=== PATIENT | male | born 1985 | race Caucasian/White ===

== ENCOUNTER 2021-08-03 11:23 | Emergency (ER) | payer OTHER, SELFPAY ==
--- NOTE | ~2021-08-03 | XR_ITS ---
EXAMINATION: XR tibia fibula RT 2V EXAM DATE: 08/03/2021 12:10 INDICATION: Fall . Bilateral leg pain. TECHNIQUE: Right tibia/fibula frontal and lateral projections obtained and reviewed. There is no rhiannon or study for comparison. FINDINGS: There is acute right lateral tibial plateau fracture with about 5 mm of distraction. The fi bula is intact. IMPRESSION: Right lateral tibial plateau intra-articular fracture; orthopedic consult. Reviewed, dictated and finalized at location A. E AGENT
--- NOTE | ~2021-08-03 | XR_ITS ---
EXAMINATION: XR femur RT min 2V EXAM DATE: 08/03/2021 12:10 INDICATION: Fall . Bilateral leg pain. Initial encounter. TECHNIQUE: Right femur frontal and lateral frog projections of the proximal aspect, frontal and later al projections of the lower aspect for review. Correlation is made to contralateral exam date. FINDINGS: Right tibial plateau acute fracture. There are no acute femur fractures or dislocations kiana ntified. There is no subcutaneous gas. There is knee joint effusion. There are no radiopaque forei gn bodies. IMPRESSION: 1. Intact right femur. 2. Right lateral tibial plateau fracture. Reviewed, dictated and finalized at location A. MASSAGE THERAPIST
--- NOTE | ~2021-08-03 | XR_ITS ---
EXAMINATION: XR femur LT min 2V EXAM DATE: 08/03/2021 12:10 INDICATION: Fall, bilateral leg pain. Initial encounter. TECHNIQUE: Left femur frontal and frog lateral projections of the proximal aspect, frontal and latera l projections of the lower aspect for review. There is no prior study for comparison. FINDINGS: There are no acute left femoral fractures or dislocations identified. There is no subcutan eous gas. The soft tissue is unremarkable. There are no radiopaque foreign bodies. IMPRESSION: 1. XR femur LT min 2V exam without acute osseous findings. Reviewed, dictated and finalized at location A. HIC PRE PRESS TRADES WORKER
--- NOTE | ~2021-08-03 | CT_ITS ---
EXAMINATION: CT lumbar spine wo con DATE: 08/03/2021 12:15 INDICATION: Low back injury. TECHNIQUE: Computed tomography (CT) of the lumbar spine was performed without intravenous contrast. A utomated exposure control and iterative reconstruction technique were employed. The dose-length produ ct was 798.10 mGy-cm. COMPARISON: None FINDINGS: There are groundglass opacities in basilar left lower lobe. No pleural effusion. There is 3 mm levocurvature of lumbar spine. Vertebral body heights and intervertebral disc heights are normal. L4 is a limbus vertebra. The following disc levels are specifically discussed: L1-L2: The disc does not extend beyond the endplate margin. There is mild bilateral facet joint osteo arthritis. There is no neural foraminal stenosis. There is no central canal stenosis. L2-L3: The disc is bulging. There is mild bilateral facet joint osteoarthritis. There is no neural fo raminal stenosis. There is mild central canal stenosis. L3-L4: The disc is bulging. There is mild bilateral facet joint osteoarthritis. There is mild bilater al neural foraminal stenosis. There is mild central canal stenosis. L4-L5: The disc is bulging. There is mild bilateral facet joint osteoarthritis. There is mild bilater al neural foraminal stenosis. There is mild central canal stenosis. L5-S1: The disc is bulging. There is mild bilateral facet joint osteoarthritis. There is mild bilater al neural foraminal stenosis. There is mild central canal stenosis. IMPRESSION: 1. No fracture. 2. Mild lumbar spondylosis. 3. Groundglass opacities in left lung lower lobe, consistent with atelectasis versus pneumonia. Reviewed, dictated and finalized at location B. PROGRAMMER IMPRESSION: 1. No fracture. 2. Mild lumbar spondylosis. 3. Groundglass opacities in left lung lower lobe, consistent with atelectasis v ersus pneumonia.
--- NOTE | ~2021-08-03 | XR_ITS ---
EXAMINATION: XR tibia fibula LT 2V EXAM DATE: 08/03/2021 12:09 INDICATION: Fall off a roof lower ext pain. TECHNIQUE: Left tibia/fibula frontal and lateral projections obtained and reviewed. There is no prio r study for comparison. FINDINGS: Left tibial and fibular shafts unremarkable. There are no acute fractures or dislocations identified. There is no subcutaneous gas. The soft tissue is unremarkable. There are no radiopaqu e foreign bodies. IMPRESSION: 1. XR tibia fibula LT 2V exam without acute osseous findings. Reviewed, dictated and finalized at location A. NCIAL INSTITUTION MANAGER
[2021-08-03 11:31] VITALS: BP 112/71; PULSE 84; RESP 20; TEMP 37.1; O2SAT 100
--- NOTE | 2021-08-03 11:46 | ED.FALL ---
HPI - Fall General Chief Complaint: Fall Stated Complaint: roof collasped on self Source: patient and RN notes reviewed Mode of arrival: wheelchair Limitations: no limitations History of Present Illness HPI Narrative: Patient was on a storage container when the roof he was working on collapsed. He states that he rode it down to the ground falling onto his buttocks. The roof then fell onto his bilateral legs anteriorly. He complains of severe leg pain right greater than left. Denies any loss of consciousness. He denies any other injury. complaint: fall Onset (ago): minute(s) (40) Fall from: from height (distance) (10 feet) Fall witnessed: yes, by bystander Place fall occurred: work Loss of consciousness: none Symptoms prior to fall: none Location of injury: back Location of injury - extremities: Bilateral: thigh, knee and lower leg Severity: severe Quality: sharp, stabbing and aching Associated symptoms (after fall): denies Related Data Home Medications Medication Instructions Recorded Confirmed No Home Medications 08/03/21 08/03/21 Allergies Allergy/AdvReac Type Severity Reaction Status Date / Time No Known Allergies Allergy Mild Verified 08/03/21 12:04 Review of Systems Review of Systems: All systems reviewed & are unremarkable except as noted in HPI and below PMFSH Past Medical History Medical History No active medical problems Surgical History Surgical History (Updated 08/03/21 @ 12:06 by Eliseo Sahu MD) No pertinent past surgical history Social History Social History (Updated 08/03/21 @ 12:30 by Eliseo Sahu MD) Smoking packs per day: 1.5 Smoking cigarettes per day: 30.0 Smoking status: Current every day smoker Tobacco type: cigarettes Alcohol intake: never Substance use: never Exam Const: General: healthy appearing, no acute distress and alert Nutritional Appearance: well nourished and thin Orientation/consciousness: patient oriented x3 HENMT: Head: normal to inspection Ears: external ears normal Face and sinus: normal facial exam Eyes: Conjunctivae: conjunctivae normal Pupils: Equal, round and reactive pupils present EOM: EOMs intact bilaterally Neck: Neck: normal visual inspection Resp: Effort & Inspection: normal respiratory effort Auscultation: clear to auscultation bilaterally Cardio: Rate: regular rate Rhythm: regular rhythm GI: GI Palp: Yes Soft to palpation, No Tenderness to palpation present (GI) and No Guarding due to palpation present (GI) Auscultation: normal bowel sounds Back/Spine/Pelvis: Cervical Spine: cervical ROM normal Thoracic/Lumbar Spine: thoraco-lumbar spasm bilaterally in the lower lumbar and lumbar spinal tenderness at L4 and at L5 Skin: General skin exam: normal color Rashes: no rashes Other: Ecchymosis superior and inferior with mild abrasions to the left knee Neuro: General: patient oriented x3, moves all extremities, no meningeal signs, no focal motor deficits and CN's II-XI intact bilaterally Speech: normal speech Extrem: General: normal exam except as noted and no clubbing, cyanosis or edema Right upper extremity: normal to inspection Left upper extremity: normal to inspection Right lower extremity: knee Details: tenderness Location: of the proximal tibia (Severe) Details: laterally, swelling Location: of the patella and of the tibial tuberosity and abnormal ROM Details: held in an abnormal fashion Details: in flexion, pain with passive ROM during Details: in extension and in flexion and unable to extend lower leg actively Left lower extremity: knee Details: tenderness Location: of the pre-patellar area and of the infrapatellar area and normal ROM; no deformity Psych: Appearance: grossly normal and well kempt Mental Status: mental status grossly normal Affect: normal affect Attitude: cooperative Thought content: Yes Normal thought content present Course Course
[2021-08-03 12:29] VITALS: BP 109/73; PULSE 82; RESP 18; O2SAT 98
[2021-08-03 12:31] LABS: Basophils Absolute Auto 0.05 K/mm3 (0.00-0.10); Basophils Percent Auto 0.4 % (0.0-1.0); Eosinophils Absolute Auto 0.05 K/mm3 (0.02-0.50); Eosinophils Percent Auto 0.4 % (1.0-6.0); Hematocrit 42.7 % (40.0-54.0); Hemoglobin 14.6 g/dL (14.0-18.0); Immature Granulocyte Absolute 0.03 K/mm3 (0.00-0.00); Immature Granulocyte Percent A 0.2 % (0.0-0.0); Lymphocytes Absolute Auto 1.32 K/mm3 (1.10-4.50); Lymphocytes Percent Auto 10.6 % (18.0-42.0); Mean Corpuscular HGB Conc 34.2 g/dL (32.0-36.0); Mean Corpuscular Hemoglobin 30.7 pg (27.0-31.0); Mean Corpuscular Volume 89.9 fL (78.0-102.0); Mean Platelet Volume 9.7 fl (8.7-11.0); Monocytes Absolute Auto 0.87 K/mm3 (0.10-0.90); Neutrophils Absolute Auto 10.1 K/mm3 (1.7-7.2); Neutrophils Percent Auto 81.4 % (50.0-70.0); Platelet Count Result 181 K/mm3 (150-420); Red Blood Count 4.75 M/mm3 (4.70-6.10); Red Cell Distribution Width 13.8 % (11.6-14.4); White Blood Count 12.4 K/mm3 (4.8-10.8)
[2021-08-03] MEDS: HYDROmorphone HCL INJ (*CRX) 2 MG/ML VIAL 1 MG IV PUSH ×2 (12:36→15:24)
[2021-08-03 12:50] LABS: Alanine Aminotransferase 44 U/L (16-63); Albumin Level 3.9 g/dL (3.4-5.0); Alkaline Phosphatase 86 U/L (46-116); Anion Gap 11 mmol/L (8-16); Aspartate Amino Transferase 27 U/L (15-37); Bilirubin,Total 0.2 mg/dL (0.00-1.00); Blood Urea Nitrogen 16 mg/dL (7-18); Calcium 8.8 mg/dL (8.5-10.1); Carbon Dioxide 25 mmol/L (21-32); Chloride 104 mmol/L (98-108); Estimated CRCL calculation 94 ml/min; Estimated Glomerular Filt Rate > 60; Glucose 92 mg/dL (70-99); Osmolality Calculated 291 mOsm/kg (285-295); Potassium 3.8 mmol/L (3.5-5.1); Sodium 140 mmol/L (136-145); Total Protein 7.4 g/dL (6.4-8.2)
[2021-08-03 13:07] LABS: SARS-CoV-2 Ag Positive (Negative)
[2021-08-03 13:13] VITALS: BP 110/81; PULSE 74; RESP 18; O2SAT 97
--- NOTE | 2021-08-03 13:23 | PC.NURSE ---
Knee immobilizer placed on RLE with 2 people to assist. Pt tolerated well. PMS intact prior to application of knee immobilizer and after knee immobilizer was applied. Pt notified of random positive COVID test.
--- NOTE | 2021-08-03 13:44 | PC.NURSE ---
Called [facility] and spoke with housecleaner, Gregory to get information on Miguel HANDLEY power tong operator. Dr. Rene power tong operator. Office number received. Unable to reach anyone at the office. Called Gregory back and she stated she would try and get ahold of Dr. Rene and have them call us.
[2021-08-03 13:45] VITALS: BP 113/82; PULSE 72; RESP 18; O2SAT 97
[2021-08-03 14:15] VITALS: BP 114/76; PULSE 78; RESP 18; O2SAT 97
--- NOTE | 2021-08-03 14:36 | PC.NURSE ---
Dr. Sahu spoke to Dr. Kumar and pt was accepted as trauma at [facility] in [place].
--- NOTE | 2021-08-03 14:40 | PC.NURSE ---
Phone report given to KARLEY Dorsey at [facility].
--- NOTE | 2021-08-03 14:46 | PC.NURSE ---
[facility] called for transport to [facility].
--- NOTE | 2021-08-03 14:53 | PC.NURSE ---
Per Dr. Sahu pt does not need a cervical collar prior to transport.
[2021-08-03 15:02] VITALS: BP 108/76; PULSE 72; RESP 16; O2SAT 97
== END 2021-08-03 15:28 | disposition short-term general hospital (02) ==
PROVIDERS: Emergency Provider Emergency Medicine
DX: U07.1 COVID-19 (principal); S82.141A Displaced bicondylar fracture of right tibia, initial encounter for closed fracture; W13.2XXA Fall from, out of or through roof, initial encounter
CPT/HCPCS: 36415; 72131; 73552; 73590; 80053; 85025; 87426; 96374; 96375; 99285; C9803; J1170; L1830